=== PATIENT | female | born 1955 | race Caucasian/White ===

== ENCOUNTER 2017-12-21 10:45 | Emergency (ER) | payer OTHER ==
[~2017-12-21] VITALS: Wt 88.0 kg
[~2017-12-21 10:45] MED LIST: ALLERGY RELIEF10 M1 PO; ASPIRIN81 M1 PO; BACTRIM DS 8001 TA1 PO; CYMBALTA60 MG PO; DIFLUCAN150 MG PO; DOXYCYCLINE HY100 M3 PO; FISH OIL1000 MG PO; LEVEMIR100 UNIT/1 SC; LISINOPRIL20 MG PO; METFORMIN1000 MG PO; NORVASC5 MG PO; NOVOLOG 70/30 M10 ML SC; NOVOLOG MIX 70/33 ML SC; NYSTATIN 5 ML5 ML PO; OMEPRAZOLE20 MG PO; PERCOCET 325 MG1 TA2 PO; SYNTHROID0.1 MG PO; TRILIPIX45 M1 PO; VICTOZA6 MG/ML SC; VITAMIN B150 MG PO; VITAMIN D32000 UNI1 PO
[2017-12-21] MEDS ORDERED: CLEOCIN HCL300 MG PO (12:19)
[2017-12-22] MEDS ORDERED: TRULICITY0.75 MG/0. SC (08:16)
[2017-12-22] MEDS ORDERED: KEFLEX500 M1 PO (08:50)
== END 2017-12-21 12:30 | disposition home or self-care (01) ==
LOC: ED 10:45
DX: L03.012 Cellulitis of left finger (principal); Z98.890 Other specified postprocedural states; Z90.49 Acquired absence of other specified parts of digestive tract; Z79.899 Other long term (current) drug therapy; Z88.0 Allergy status to penicillin; Z91.041 Radiographic dye allergy status; Z88.8 Allergy status to other drugs, medicaments and biological substances; Z79.4 Long term (current) use of insulin

== ENCOUNTER 2017-12-22 08:00 | Emergency (ER) | payer OTHER ==
[~2017-12-22] VITALS: Ht 170.1 cm; Wt 88.0 kg
[~2017-12-22 08:00] MED LIST changes: +CLEOCIN HCL300 MG PO
[2017-12-22] MEDS ORDERED: TRULICITY0.75 MG/0. SC (08:16)
[2017-12-22] MEDS ORDERED: KEFLEX500 M1 PO (08:50)
== END 2017-12-22 09:20 | disposition home or self-care (01) ==
LOC: ED 08:00
DX: L03.012 Cellulitis of left finger (principal); L02.512 Cutaneous abscess of left hand; Z98.890 Other specified postprocedural states; Z90.49 Acquired absence of other specified parts of digestive tract; Z79.899 Other long term (current) drug therapy; Z79.4 Long term (current) use of insulin; Z88.0 Allergy status to penicillin; Z91.041 Radiographic dye allergy status

== ENCOUNTER 2018-03-30 10:21 | Emergency (ER) | payer OTHER ==
[~2018-03-30] VITALS: Ht 170.1 cm; Wt 81.6 kg
[~2018-03-30 10:21] MED LIST changes: +KEFLEX500 M1 PO; +TRULICITY0.75 MG/0. SC
== END 2018-03-30 10:46 | disposition home or self-care (01) ==
LOC: ED 10:21
DX: S05.01XA Injury of conjunctiva and corneal abrasion without foreign body, right eye, initial encounter (principal); Z88.0 Allergy status to penicillin; Z88.8 Allergy status to other drugs, medicaments and biological substances; Z79.899 Other long term (current) drug therapy; Z90.49 Acquired absence of other specified parts of digestive tract; X58.XXXA Exposure to other specified factors, initial encounter; Y93.89 Activity, other specified; Y92.89 Other specified places as the place of occurrence of the external cause; Y99.8 Other external cause status

== ENCOUNTER 2018-07-17 17:36 | Emergency (ER) | payer OTHER ==
[~2018-07-17] VITALS: Ht 170.1 cm; Wt 90.7 kg
[2018-07-17] MEDS ORDERED: ZITHROMAX250 MG PO (18:09)
== END 2018-07-17 18:17 | disposition home or self-care (01) ==
LOC: ED 17:36
DX: J01.20 Acute ethmoidal sinusitis, unspecified (principal); R42 Dizziness and giddiness; H92.03 Otalgia, bilateral; E11.9 Type 2 diabetes mellitus without complications; I10 Essential (primary) hypertension; Z88.0 Allergy status to penicillin; Z88.8 Allergy status to other drugs, medicaments and biological substances; Z79.2 Long term (current) use of antibiotics; Z79.4 Long term (current) use of insulin; Z79.899 Other long term (current) drug therapy; Z90.49 Acquired absence of other specified parts of digestive tract

== ENCOUNTER → 2024-02-22 | Outpatient (CLI) | payer OTHER ==
[~2024-02-22] MED LIST changes: +ZITHROMAX250 MG PO
== END | disposition home or self-care (01) ==
LOC: CARD 01:17
PROVIDERS: ATTEND Internal Medicine
DX: R00.1 Bradycardia, unspecified (principal); R00.2 Palpitations

== ENCOUNTER → 2025-04-07 | Outpatient (CLI) | payer OTHER | END | disposition home or self-care (01) | LOC: LAB 13:15 | PROVIDERS: ATTEND Internal Medicine | DX: M19.042 Primary osteoarthritis, left hand (principal); M19.041 Primary osteoarthritis, right hand; M17.12 Unilateral primary osteoarthritis, left knee; M25.842 Other specified joint disorders, left hand; M25.841 Other specified joint disorders, right hand; M79.641 Pain in right hand; M79.642 Pain in left hand; M25.562 Pain in left knee; E11.42 Type 2 diabetes mellitus with diabetic polyneuropathy ==

== ENCOUNTER → 2025-04-14 | Outpatient (CLI) | payer OTHER ==
[2025-04-14 13:56] LABS: MEAN CELL VOLUME 91.8 fl (81.0-99.0); MEAN CORPUSCULAR HGB 29.9 pg (27.0-31.0); MEAN PLATELET VOLUME 9.1 fl (9.6-12.3); NUCLEATED RED BLOOD CELL 0.0 % (0.0-0.0); NUCLEATED RED BLOOD CELL 0.0 10*3/uL (0.0-0.0); PLATELET COUNT AUTOMATED 398.0 10*3/uL (130-400); RED CELL DISTRI WIDTH 13.9 % (0-14.5)
[2025-04-14 14:11] LABS: BILIRUBIN Negative (Negative); BLOOD Trace-Lysed (Negative); CLARITY Clear (Clear); COLOR Yellow (Yellow); KETONE Negative (Negative); LEUKO ESTERASE Negative (Negative); NITRITE Negative (Negative); PH 5.0 (4.5-8.0); SPECIFIC GRAVITY 1.025 (1.001-1.030); UROBILINOGEN 0.2 E.U./dl (0.0-1.0)
[2025-04-14 14:22] LABS: BACTERIA 1+; RBC 0-2 rbc/hpf (0-2)
[2025-04-14 14:31] LABS: BUN 11 mg/dl (9-23); LDL CHOLESTEROL 136 mg/dL (9-159); SGPT/ALT 14 U/L (5-49)
== END | disposition home or self-care (01) ==
LOC: LAB 13:13
PROVIDERS: ATTEND Internal Medicine
DX: M05.9 Rheumatoid arthritis with rheumatoid factor, unspecified (principal); Z79.899 Other long term (current) drug therapy